=== PATIENT | female | born 1985 | race Caucasian/White ===

== ENCOUNTER 2018-02-28 16:27 | Outpatient (REF) | payer SELFPAY ==
[2018-02-28 22:10] LABS: Abs Immature Grans 0.05 k/cumm (0.0-0.09); Absolute Basophil Count 0.07 k/cumm (0.0-0.2); Absolute Eosinophil Count 0.19 k/cumm (0.0-0.7); Absolute Lymphocyte Count 3.41 k/cumm (1.2-3.4); Absolute Monocyte Count 0.62 k/cumm (0.11-0.7); Absolute Neutrophil Count 5.42 k/cumm (1.2-6.7); Basophils % 0.7; Eosinophils % 1.9; HCT 36.9 % (36.0-46.0); HGB 11.9 g/dL (12.0-15.5); Immature Grans % 0.5; Lymphocytes % 34.9; Mean Corp. HGB Concentration 32.2 g/dL (32.0-36.0); Mean Corpuscular Hemoglobin 27.9 pg (27.0-33.0); Mean Corpuscular Volume 86.6 fL (80-95); Mean Platelet Volume 11.4 fL (8.0-11.0); Monocytes % 6.4; Neutrophils % 55.6; Platelet Count 348 x1000/uL (130-400); RBC 4.26 m/cumm (4.00-5.20); RBC Distribution Width 14.4 % (11.7-14.6); White Blood Cell Count 9.76 k/cumm (4.4-10.8)
[2018-02-28 22:39] LABS: ALT 36 U/L (12-78); AST 12 U/L (15-37); Alkaline Phosphatase 109 U/L (46-116); Anion Gap 9.1 mmol/L (3-11); BUN 21 mg/dL (7-18); Bilirubin, Total 0.2 mg/dL (0.2-1.0); CO2 27.9 mmol/L (21.0-32.0); CREATININE 0.94 mg/dL (0.55-1.02); Calcium 9.5 mg/dL (8.5-10.1); Chloride 99 mmol/L (98-107); Glucose 107 mg/dL (70-100); Potassium 4.1 mmol/L (3.5-5.1); Sodium 136 mmol/L (136-145); Total Protein 7.3 g/dL (6.4-8.2)
[2018-03-03 14:45] LABS: Chlamydia Result Negative; GC Result Negative; Specimen Description CERVICAL
== END 2018-02-28 16:47 ==
LOC: NCHCN 16:27
PROVIDERS: PCP Family Medicine; Visit Provider Internal Medicine
DX: R10.31 Right lower quadrant pain (principal)
CPT/HCPCS: 80053; 87491; 87591; 85025

== ENCOUNTER 2018-09-01 11:16 | Outpatient (REF) | payer MEDICAID, SELFPAY ==
[2018-09-01 20:51] LABS: BUN 27 mg/dL (7-18); CREATININE 0.87 mg/dL (0.55-1.02); Calcium 10.2 mg/dL (8.5-10.1); Calculated LDL 77; Chloride 95 mmol/L (98-107); Cholesterol 183 mg/dL (50-200); Glucose 93 mg/dL (70-100); HDL Cholesterol 36 mg/dL (40-60); Sodium 133 mmol/L (136-145); Triglyceride 353 mg/dL (30-150)
[2018-09-01 21:11] LABS: Hemoglobin A1C 5.5 % (4.5-6.2)
== END 2018-09-01 11:36 ==
LOC: NCHCN 11:16
PROVIDERS: PCP Family Medicine; Visit Provider Family Medicine
DX: I10 Essential (primary) hypertension (principal); Z13.220 Encounter for screening for lipoid disorders; Z13.1 Encounter for screening for diabetes mellitus; E66.9 Obesity, unspecified; Z00.00 Encounter for general adult medical examination without abnormal findings
CPT/HCPCS: 80048; 80061; 83721; 83036

== ENCOUNTER 2020-01-09 18:49 | Outpatient (REF) | payer MEDICAID, SELFPAY ==
[2020-01-09 21:33] LABS: HCT 40.5 % (36.0-46.0); MCH 27.3 pg (27.0-33.0); MCHC 32.1 % (32.0-36.0); MCV 84.9 fL (80-95); MPV 11.2 fL (8.0-11.0); Platelet Count 388 10^3/uL (130-400); RBC 4.77 10^6/uL (3.93-5.22); RDW 14.6 % (11.7-14.6); WBC 10.48 10^3/uL (4.4-10.8)
[2020-01-09 22:01] LABS: Hemoglobin A1C 5.6 % (<5.7)
[2020-01-09 22:36] LABS: ALT 23 U/L (14-59); AST 18 U/L (15-37); Albumin 4.6 g/dL (3.4-5.0); Alkaline Phosphatase 114 U/L (46-116); Anion Gap 10.6 mmol/L (3-11); BUN 17 mg/dL (7-18); Bilirubin, Total 0.3 mg/dL (0.2-1.0); CO2 26.4 mmol/L (21.0-32.0); CREATININE 0.67 mg/dL (0.55-1.02); Calcium 9.5 mg/dL (8.5-10.1); Calculated LDL 88 mg/dL (<100); Chloride 100 mmol/L (98-107); Cholesterol 187 mg/dL (<200); Glucose 108 mg/dL (74-106); HDL Cholesterol 31 mg/dL (40-60); Potassium 3.7 mmol/L (3.5-5.1); Sodium 137 mmol/L (136-145); TSH (W/Ref FT4) 1.23 uIU/mL (0.36-3.74); Total Protein 7.8 g/dL (6.4-8.2); Triglyceride 340 mg/dL (<150)
[2020-01-10 16:56] LABS: Estradiol 43 pg/mL (See Note)
[2020-01-10 17:36] LABS: FSH 4.7 mIU/mL (See Note); Prolactin 8.5 ng/mL (See Table)
[2020-01-11 04:24] LABS: Vitamin D 25 Total 17.8 ng/ml (30-100)
[2020-01-14 10:32] LABS: Testosterone, Free 0.16 ng/dL (0.06-1.03); Testosterone, Total 9.7 ng/dL (8-60)
== END 2020-01-09 19:09 ==
LOC: NCHCN 18:49
PROVIDERS: PCP Family Medicine; Visit Provider Family Medicine
DX: I10 Essential (primary) hypertension (principal); N95.1 Menopausal and female climacteric states; N91.1 Secondary amenorrhea; F31.81 Bipolar II disorder; F32.9 Major depressive disorder, single episode, unspecified; E66.01 Morbid (severe) obesity due to excess calories; E78.6 Lipoprotein deficiency
CPT/HCPCS: 80053; 80061; 82306; 84402; 84403; 85027; 82670; 83001; 83036; 84146; 84443

== ENCOUNTER 2020-03-14 22:20 | Outpatient (REF) | payer MEDICAID, SELFPAY ==
[2020-03-14 22:38] LABS: Vitamin D 25 Total 29.1 ng/ml (30-100)
== END 2020-03-14 22:40 ==
LOC: NCHCN 22:20
PROVIDERS: PCP Family Medicine; Visit Provider Nurse Practitioner Family
DX: E55.9 Vitamin D deficiency, unspecified (principal)
CPT/HCPCS: 82306

== ENCOUNTER 2020-05-07 19:39 | Outpatient (REF) | payer MEDICAID, SELFPAY ==
[2020-05-09 04:44] LABS: Vitamin D 25 Total 30.1 ng/ml (30-100)
== END 2020-05-07 19:40 | disposition home or self-care (01) ==
LOC: NCHCN 19:39
PROVIDERS: PCP Family Medicine; Visit Provider Family Medicine
DX: E55.9 Vitamin D deficiency, unspecified (principal)
CPT/HCPCS: 82306